=== PATIENT | female | born 1935 | race African-American/Black ===

== ENCOUNTER 2018-09-05 15:18 | Inpatient (IN) | payer OTHER, MEDICAID ==
[~2018-09-05] VITALS: Ht 162.6 cm; Wt 98.9 kg
[2018-09-05 15:27] VITALS: BP_SYST 147
--- NOTE | 2018-09-05 15:40 | NUR ---
Patient to ER bed 4 to gown for evaluation. Side rails up. Report given to Liliana PANDYA.
--- NOTE | 2018-09-05 15:42 | NUR ---
Pt brought by self,A&Ox4, pt presents to ER with SOB and swelling on lower extremities, denies pain , skin pink and warm, cap refill <3, VSS, respirations even and unlabored, cap refill <3, pt follows commands.
--- NOTE | 2018-09-05 16:00 | NUR ---
Dr John at bedside examining patient
[2018-09-05 16:15] LABS: BILIRUBIN,URINE NEGATIVE (NEGATIVE); BLOOD, URINE NEGATIVE (NEGATIVE); CLARITY/URINE CLEAR (CLEAR); COLOR,URINE YELLOW (YELLOW); GLUCOSE,URINE NEGATIVE (NEGATIVE); KETONES,URINE NEGATIVE (NEGATIVE); LEUKOCYTE ESTERASE ,URINE NEGATIVE (NEGATIVE); NITRITE, URINE NEGATIVE (NEGATIVE); PH,URINE 6.5 (5.0-8.0); PROTEIN URINE 2+ (NEGATIVE); UROBILINOGEN,URINE 0.2 (0.2-1.0)
[2018-09-05 16:26] LABS: ANION GAP 3 (5-15); CALCIUM 9.2 mg/dL (8.4-11.0); CHLORIDE 104 mmol/L (98-107); CREATININE 1.34 mg/dL (0.55-1.30); GLUCOSE 132 mg/dL (70-99); POTASSIUM 4.1 mmol/L (3.5-5.1); SODIUM SERUM 139 mmol/L (136-145); UREA NITROGEN, BLOOD 33 mg/dL (8-21)
[2018-09-05 16:30] LABS: ALANINE AMINOTRANSFERASE 14 U/L (12-78); ALBUMIN 2.8 g/dL (3.4-4.8); ASPARTATE AMINOTRANSFERASE 16 U/L (10-37); TOTAL BILIRUBIN 0.2 mg/dL (0.0-1.0)
[2018-09-05 16:31] LABS: BASOPHILS # (AUTO) 0.2 K/uL (0.0-0.2); BASOPHILS % (AUTO) 1.6 % (0.0-2.0); EOSINOPHILS # (AUTO) 0.4 K/uL (0.0-0.4); EOSINOPHILS % (AUTO) 3.6 % (0.0-4.0); HEMATOCRIT 31.6 % (36-48); HEMOGLOBIN 9.5 g/dL (12.0-16.0); LYMPHOCYTES # (AUTO) 1.3 K/uL (1.0-5.5); LYMPHOCYTES % (AUTO) 12.6 % (20.5-51.5); MEAN CORPUSCULAR HEMOGLOBIN 24 pg (27-31); MEAN CORPUSCULAR HGB CONC 30 % (32-36); MEAN CORPUSCULAR VOLUME 78 fL (79.0-98.0); MONOCYTES # (AUTO) 0.9 K/uL (0.0-1.0); MONOCYTES % (AUTO) 8.6 % (1.7-9.3); NEUTROPHILS # (AUTO) 7.7 K/uL (1.8-7.7); NEUTROPHILS % (AUTO) 73.6 % (40.0-70.0); PLATELET COUNT (AUTO) 294 K/uL (130-430); RED BLOOD CELL COUNT(AUTO) 4.03 MIL/uL (4.2-6.2); RED CELL DISTRIBUTION WIDTH 17.6 % (9.0-15.0); WHITE BLOOD COUNT (AUTO) 10.5 K/uL (4.8-10.8)
[2018-09-05 16:32] LABS: INR 0.9 (0.8-1.2); PROTHROMBIN TIME 9.5 SECS (9.5-12.5)
[2018-09-05 16:34] LABS: BACTERIA,URINE FEW /HPF (None Seen); RBC,URINE 0-3 /HPF (0-3); WBC,URINE 0-3 /HPF (0-3)
[2018-09-05 16:35] LABS: MUCUS,URINE None Seen /LPF (None Seen)
[2018-09-05] MEDS ORDERED: FUROSEMIDE 40 MG/4 ML VIAL IVP ONE (17:00)
[2018-09-05] MEDS ORDERED: FLUT16SP16 NS (18:03)
[2018-09-05] MEDS ORDERED: HYDR12.585 PO (18:03)
[2018-09-05] MEDS ORDERED: HYDR2TAB4 PO (18:03)
[2018-09-05] MEDS ORDERED: FURO-149 PO (18:03)
[2018-09-05] MEDS ORDERED: LINA5TAB2 PO (18:03)
[2018-09-05] MEDS ORDERED: OMEG-143 PO (18:03)
[2018-09-05] MEDS ORDERED: NOR10 PO (18:03)
[2018-09-05] MEDS ORDERED: METO50TA7 PO (18:03)
[2018-09-05] MEDS ORDERED: LISI10TA5 PO (18:03)
[2018-09-05] MEDS ORDERED: NEBI5TAB3 PO (18:03)
--- NOTE | 2018-09-05 18:03 | NUR ---
Medication reconciliation completed based upon hand written list of medications provided by patient.
--- NOTE | 2018-09-05 18:06 | NUR ---
Patient will be admitted to care of Dr. Cartagena. Admitted to Telemetry unit. Will go to room 106 B. Belongings list completed. Summary report printed. Report will be given at bedside.
--- NOTE | 2018-09-05 18:06 | NUR ---
Transfer to Telemetry via ACLS protocol. Licensed nurse present. IV present no signs or symptoms of infiltration.
--- NOTE | 2018-09-05 18:10 | NUR ---
ADMIT NOTE Received pt from ER to the floor with a diagnosis of chf exacerbation. Admission process initiated. patient oriented to pain management, safety and call light-teach back done.
--- NOTE | 2018-09-05 18:30 | NUR ---
OPENING NOTES, RECEIVED PT FROM [place] . PT IS AAOX4, DENIES PAIN. NO SOB, NO RESP DISTRESS, PT ON O2 2L PER NC WITH SAT OF 99-100%, FAMILY AT BEDSIDE. PT EDUCATED ON THE USE OF CALL LIGHT AND TV AND BED CONTROLS. ENCOURAGED TO CALL FOR ASSIST AND PAIN MEDS AND ANY CONCERNS. PROVIDED BS COMMODE. WILL ENDORSE TO NIGHT RN.
[2018-09-05 18:35] VITALS: BP_SYST 146
--- NOTE | 2018-09-05 19:30 | NUR ---
Initial Notes Received handoff report from offgoing nurse at the bedside. Patient is awake and alert, resting comfortably in bed. No SOB, no acute distress, no complaints of pain or facial grimacing at this time. IV site intact, dressing clean and dry, saline locked. Bed is locked, in the lowest position, 2x side rails up, bed alarm is on. Call light is within reach. Encouraged patient to call for assistance. Will continue with plan of care.
--- NOTE | 2018-09-05 19:45 | NUR ---
CONSULTATION PAGED/CALLED Reason for Consultation: CHF Person Who was Notified: REJI Consulting Physician: ANT/ DOCTOR HUNTLEY IS NUCLEAR MEDICAL TECHNOLOGIST Nurse Anesthesia Program Director Specialty: CARDIO Ordering Physician: BRADLEY
--- NOTE | 2018-09-05 19:47 | NUR ---
CONSULTATION PAGED/CALLED Reason for Consultation: ELEVATED BUN AND CRETENENIE Person Who was Notified: SHU Consulting Physician: BRUNA Watch Mechanic Specialty: NEPHRO Ordering Physician: BRADLEY
[2018-09-05 20:00] VITALS: BP_SYST 142
--- NOTE | 2018-09-05 20:45 | NUR ---
Patient able to get to bedside commode independently without assistance. Had a BM. Now resting comfortably in bed. Call light within reach. Encouraged patient to call.
--- NOTE | 2018-09-05 21:56 | NUR ---
Patient resting comfortably in bed, eyes closed. Breathing even and unlabored with visible chest rise and fall noted. Call light within reach.
--- NOTE | 2018-09-06 | NUR ---
Patient resting in bed, eyes closed, easily aroused by touch. No SOB, no acute distress, no complaints of pain at this time. Provided patient with more water per patient request. Call light is within reach. Encouraged patient to call.
[2018-09-06 01:15] VITALS: BP_SYST 143
--- NOTE | 2018-09-06 02:16 | NUR ---
Patient resting comfortably in bed, eyes closed. Breathing even and unlabored with visible chest rise and fall noted. No SOB, no acute distress, no signs of pain or facial grimacing noted. Bed is locked, in the lowest position, 2x side rails up, bed alarm is on. Call light is within reach.
--- NOTE | 2018-09-06 03:59 | NUR ---
Patient assisted to the BSC and back to bed. Now resting comfortably in bed. 2L NC and tolerating well. Call light within reach. Encouraged to call.
--- NOTE | 2018-09-06 06:30 | NUR ---
CLOSING NOTES PATIENT RESTING COMFORTABLY IN BED, EYES CLOSED. BREATHING EVEN AND UNLABORED WITH VISIBLE CHEST RISE AND FALL NOTED. IV SITE IS INTACT, DRESSING CLEAN AND DRY, SALINE LOCKED. BED IS LOCKED, IN THE LOWEST POSITION, 2X SIDE RAILS UP, BED ALARM IS ON. CALL LIGHT IS WITHIN REACH. FALL AND SAFETY PRECAUTIONS MAINTAINED. ALL NEEDS HAVE BEEN MET DURING THIS SHIFT. WILL ENDORSE CARE TO ONCOMING DAYSHIFT NURSE.
--- NOTE | 2018-09-06 08:21 | NUR ---
OPENING NOTES, RECEIVED PT IN BED, PT IS AAOX4, DENIES PAIN. NO SOB, NO RESP DISTRESS, PT HAS COUGH BUT DOES NOT COUGH UP PHLEGM. PT ON O2 2L PER NC WITH SAT OF 95-88% SAFETY. DISCUSSED PLAN OF CARE FOR PT. PRECAUTION IN PLACE. CALL LIGHT IN REACH. BED IN LOW POSITION. ENCOURAGED TO CALL FOR ASSIST AND PAIN MEDS AND ANY CONCERNS. PROVIDED BS COMMODE. WILL ENDORSE TO NIGHT RN.
[2018-09-06 08:23] VITALS: BP_SYST 146
[2018-09-06] MEDS: ALBUTEROL SULFATE 0.083% 2.5 MG/3 ML VIAL.NEB INH SCH ×4 (11:00→23:34)
[2018-09-06] MEDS: cefTRIAXone 1 GM IVPB PREMIX 50 ML IV SCH (11:33)
[2018-09-06 12:49] VITALS: BP_SYST 140
[2018-09-06 13:59] VITALS: BP_SYST 146
--- NOTE | 2018-09-06 14:00 | NUR ---
PT C/O NAUSEA, PT VITALS ARE 127/59. HR 72, RR 16, O2 ON RA IS 79%, PT PLACED BACK ON O2 2LI PER NC. SATURATED WENT UP TO 94%. WILL CALL MD FOR NAUSEA MEDICATIONS.
--- NOTE | 2018-09-06 15:12 | NUR ---
REPAGED DR HUERTA THRU UNIT SEC. PACE FOR ANTI NAUSEA MEDICATIONS.
[2018-09-06 15:36] VITALS: BP_SYST 136
--- NOTE | 2018-09-06 19:30 | NUR ---
Initial Notes Handoff report received from offgoing nurse at the bedside. Patient is awake and alert, resting comfortably in bed. No SOB, no acute distress, no complaints of pain at this time. Bed is locked, in the lowest position, 2x side rails up, bed alarm is on. Call light is within reach. Encouraged patient to call for assistance. Will continue with plan of care.
--- NOTE | 2018-09-06 19:45 | NUR ---
CLOSING NOTES, PT HAS BEEN STABLE, NO FEVER, PT HAD AN EPISODE OF DESATURATION TO 79% ON ROOM AIR, PT PLACED BACK ON ON 2L PER NC AND 02 SAT WENT UP AGIN TO 94-95%. ENDORSED TO NIGHT RN.
[2018-09-06 20:45] VITALS: BP_SYST 168
[2018-09-06] MEDS: PANTOPRAZOLE SODIUM 40 MG TAB PO SCH (20:54)
[2018-09-06] MEDS: FUROSEMIDE 20 MG TABLET PO SCH (20:55)
[2018-09-06] MEDS: HYDROcodone/ACETAMIN 10-325 MG TAB PO PRN (20:58)
--- NOTE | 2018-09-06 20:58 | NUR ---
Patient had complaints of a headache 09/04. Provided patient with Grapeview PRN per MD order, see eMAR for details.
--- NOTE | 2018-09-06 21:01 | NUR ---
paged paged for Dr Cartagena, dialed . s/w Live.
--- NOTE | 2018-09-06 21:10 | NUR ---
Spoke with Dr Cartagena. Patient had complaints of nausea previously in the day. Dr Cartagena ordered Zofran 4mg IVP Q6H PRN for nausea. Also, patient's BP elevated 168/72. Lasix recently given at 2054; however, I, Kristal Junior, had not had the change to reassess BP. Dr Cartagena ordered Vasotec 1.25 mg IVP Q6HP for SBP > 150. Orders noted.
[2018-09-06] MEDS ORDERED: ONDANSETRON HCL 4 MG/2 ML VIAL IVP PRN (23:30)
[2018-09-06] MEDS: ENALAPRILAT DIHYDRATE 1.25 MG/ML VIAL IVP PRN (23:37)
--- NOTE | 2018-09-06 23:44 | NUR ---
Patient assisted to bsc to void. Unsteady gait at this time. Patient is experiencing symptoms of shakiness in her extremities. BP taken, BP is 168/71. Provided patient with Vasotec IVP per MD order, see eMAR for details. Will continue to monitor.
--- NOTE | 2018-09-06 23:49 | NUR ---
Initial Notes Handoff report received from offgoing nurse at the bedside. Patient is awake and alert, resting comfortably in bed. No SOB, no acute distress, no complaints of pain at this time. Bed is locked, in the lowest position, 2x side rails up, bed alarm is on. Call light is within reach. Encouraged patient to call for assistance. Will continue with plan of care. Addendum: 09/06/18 at 4868 by Kristal Junior RN ERROR* WRONG TIME
[2018-09-07 01:48] VITALS: BP_SYST 112; BP_SYST 168
--- NOTE | 2018-09-07 02:24 | NUR ---
Patient resting comfortably in bed, eyes closed. Breathing even and unlabored with visible chest rise and fall noted. no sob, no acute distress, no signs of pain or facial grimacing noted. Bed is locked, in the lowest position, 2x side rails up, bed alarm is on. call light is within reach.
[2018-09-07] MEDS: ALBUTEROL SULFATE 0.083% 2.5 MG/3 ML VIAL.NEB INH SCH ×6 (03:00→23:06)
--- NOTE | 2018-09-07 05:15 | NUR ---
Patient requested to use the bathroom, but is too unsteady and weak to ambulate. Patient assisted to use bedpan. perineal care provided after voiding. Now resting comfortably in bed, clean and dry.
[2018-09-07 06:33] LABS: BASOPHILS % (AUTO) 0.4 % (0.0-2.0); EOSINOPHILS # (AUTO) 0.2 K/uL (0.0-0.4); EOSINOPHILS % (AUTO) 2.5 % (0.0-4.0); HEMATOCRIT 29.3 % (36-48); HEMOGLOBIN 8.8 g/dL (12.0-16.0); LYMPHOCYTES # (AUTO) 1.1 K/uL (1.0-5.5); LYMPHOCYTES % (AUTO) 14.1 % (20.5-51.5); MEAN CORPUSCULAR HEMOGLOBIN 24 pg (27-31); MEAN CORPUSCULAR HGB CONC 30 % (32-36); MEAN CORPUSCULAR VOLUME 80 fL (79.0-98.0); MONOCYTES # (AUTO) 0.8 K/uL (0.0-1.0); MONOCYTES % (AUTO) 10.4 % (1.7-9.3); NEUTROPHILS # (AUTO) 5.8 K/uL (1.8-7.7); NEUTROPHILS % (AUTO) 72.6 % (40.0-70.0); PLATELET COUNT (AUTO) 245 K/uL (130-430); RED BLOOD CELL COUNT(AUTO) 3.66 MIL/uL (4.2-6.2); RED CELL DISTRIBUTION WIDTH 17.2 % (9.0-15.0)
--- NOTE | 2018-09-07 06:39 | NUR ---
CLOSING NOTES Received handoff report from offgoing nurse at the bedside. Patient is awake and alert, resting comfortably in bed. No SOB, no acute distress, no signs of pain or facial grimacing noted. Bed is locked, in the lowest position, 2x side rails up, bed alarm is on. Call light is within reach. Fall and safety precautions maintained. All needs have been met during this shift. Will endorse care to oncoming dayshift nurse.
[2018-09-07 06:58] LABS: ALANINE AMINOTRANSFERASE 13 U/L (12-78); ALBUMIN 2.5 g/dL (3.4-4.8); ASPARTATE AMINOTRANSFERASE 11 U/L (10-37); CREATININE 1.32 mg/dL (0.55-1.30); GLUCOSE 107 mg/dL (70-99); POTASSIUM 3.7 mmol/L (3.5-5.1); SODIUM SERUM 143 mmol/L (136-145); THYROID STIMULATING HORMONE 0.49 uIu/mL (0.36-3.74); TOTAL BILIRUBIN 0.1 mg/dL (0.0-1.0); UREA NITROGEN, BLOOD 27 mg/dL (8-21)
[2018-09-07 07:07] LABS: CALCIUM 8.6 mg/dL (8.4-11.0)
[2018-09-07 07:14] LABS: CHLORIDE 101 mmol/L (98-107)
--- NOTE | 2018-09-07 07:15 | NUR ---
Opening Note: Patient in bed resting. Patient denies pain and discomfort. Breathing is even and unlabored, SOB upon exertion/talking. On 2L nasal cannula. IV patent and intact and saline locked. Safety precautions in place; bed in lowest position, wheels locked, side rails x3, bed alarm activated and call light within reach. No needs at this time. Will continue to monitor.
[2018-09-07 07:21] LABS: ANION GAP < 3 (5-15)
[2018-09-07 08:08] VITALS: BP_SYST 162
[2018-09-07] MEDS: LISINOPRIL 10 MG TABLET (PRINIVIL) PO SCH (08:19)
[2018-09-07] MEDS: PANTOPRAZOLE SODIUM 40 MG TAB PO SCH ×2 (08:19→22:35)
[2018-09-07] MEDS: METOPROLOL TARTRATE 25 MG TABLET PO SCH ×2 (08:19→22:34)
[2018-09-07] MEDS: FUROSEMIDE 20 MG TABLET PO SCH ×2 (08:19→22:35)
[2018-09-07] MEDS: FLUTICASONE PROPIONATE 50 mCg/SPRAY 16 GM NS SCH ×2 (08:20→22:37)
--- NOTE | 2018-09-07 10:00 | NUR ---
Rounds: Patient in bed resting, no distress noted.
[2018-09-07] MEDS: cefTRIAXone 1 GM IVPB PREMIX 50 ML IV SCH (11:06)
[2018-09-07] MEDS: HYDROcodone/ACETAMIN 10-325 MG TAB PO PRN ×2 (11:12→22:35)
[2018-09-07 11:27] VITALS: BP_SYST 141
--- NOTE | 2018-09-07 12:14 | NUR ---
Rounds: Patient assisted to BSC. Patient no longer complains of pain. Morning medications tolerated well. No SOB or respiratory distress noted at this time. Rocephin IVPB infusion compete, no signs of infiltration noted. Safety precautions in place; bed in lowest position, wheels locked, side rails x3, bed alarm activated and call light within reach. No needs at this time. Will continue to monitor.
--- NOTE | 2018-09-07 14:20 | NUR ---
Rounds: Patient in bed resting, watching TV. Patient states feeling better. Will continue to monitor.
[2018-09-07 15:31] VITALS: BP_SYST 138
--- NOTE | 2018-09-07 16:07 | NUR ---
Rounds: Patient in bed resting. Patient denies pain and discomfort. No SOB or respiratory distress noted at this time. Safety precautions in place; bed in lowest position, wheels locked, side rails x3, bed alarm activated and call light within reach. No needs at this time. Will continue to monitor.
--- NOTE | 2018-09-07 18:35 | NUR ---
Closing Note: Patient in bed resting. Patient denies pain and discomfort. Breathing is even and unlabored, with no distress noted. On 2L nasal cannula. IV patent and intact and saline locked. Safety precautions in place; bed in lowest position, wheels locked, side rails x3, bed alarm activated and call light within reach. All needs met. Will endorse plan of care to NOC, nurse.
[2018-09-07 20:19] VITALS: BP_SYST 137
--- NOTE | 2018-09-07 22:25 | NUR ---
ASSIST PATIENT OUT OF BED TO BSC , AMBULATES with assist FALL MEASURES IMPLEMENTED & EFFECTIVE .
[2018-09-08] VITALS (7 sets, daily range): BP systolic 144–170
--- NOTE | 2018-09-08 | NUR ---
NORCO TABLET 10 /325 MG PO GIVEN FOR GENERAL PAIN & HELPFUL , patient Resting .
[2018-09-08] MEDS: ALBUTEROL SULFATE 0.083% 2.5 MG/3 ML VIAL.NEB INH SCH ×6 (03:20→23:28)
--- NOTE | 2018-09-08 04:15 | NUR ---
HISTORY OF CHF GENERAL BODY WEIGHT 215.6 LBS BUILT IN BED SCALE .
--- NOTE | 2018-09-08 04:45 | NUR ---
HOURLY ROUNDING PATIENT RESTING HOB ELEVATED VERBALLY RESPONSIVE NEBULIZER BREATHING TX GIVEN CHEST MOVEMENT SYMMETRICAL UNLABORED .
--- NOTE | 2018-09-08 04:50 | NUR ---
FALL MEASURES INPLACE patient Resting call garg with patient assist encourage position change on schedule tolerate .
[2018-09-08 06:33] LABS: BASOPHILS % (AUTO) 0.3 % (0.0-2.0); EOSINOPHILS # (AUTO) 0.4 K/uL (0.0-0.4); EOSINOPHILS % (AUTO) 4.3 % (0.0-4.0); HEMATOCRIT 27.2 % (36-48); HEMOGLOBIN 8.3 g/dL (12.0-16.0); LYMPHOCYTES # (AUTO) 1.3 K/uL (1.0-5.5); LYMPHOCYTES % (AUTO) 14.6 % (20.5-51.5); MEAN CORPUSCULAR HEMOGLOBIN 24 pg (27-31); MEAN CORPUSCULAR HGB CONC 31 % (32-36); MEAN CORPUSCULAR VOLUME 79 fL (79.0-98.0); MONOCYTES # (AUTO) 0.8 K/uL (0.0-1.0); MONOCYTES % (AUTO) 9.5 % (1.7-9.3); NEUTROPHILS # (AUTO) 6.4 K/uL (1.8-7.7); NEUTROPHILS % (AUTO) 71.3 % (40.0-70.0); PLATELET COUNT (AUTO) 236 K/uL (130-430); RED BLOOD CELL COUNT(AUTO) 3.44 MIL/uL (4.2-6.2); RED CELL DISTRIBUTION WIDTH 17.5 % (9.0-15.0)
[2018-09-08 07:05] LABS: ALANINE AMINOTRANSFERASE 13 U/L (12-78); ALBUMIN 2.5 g/dL (3.4-4.8); ANION GAP 4 (5-15); ASPARTATE AMINOTRANSFERASE 10 U/L (10-37); CHLORIDE 100 mmol/L (98-107); CREATININE 1.06 mg/dL (0.55-1.30); GLUCOSE 98 mg/dL (70-99); POTASSIUM 3.6 mmol/L (3.5-5.1); SODIUM SERUM 140 mmol/L (136-145); TOTAL BILIRUBIN 0.2 mg/dL (0.0-1.0); UREA NITROGEN, BLOOD 23 mg/dL (8-21)
--- NOTE | 2018-09-08 07:15 | NUR ---
Opening Note: Patient in bed resting. Patient denies pain and discomfort. Breathing is even and unlabored On 2L nasal cannula, no distress noted. IV patent and intact and saline locked. Safety precautions in place; bed in lowest position, wheels locked, side rails x3, bed alarm activated and call light within reach. No needs at this time. Will continue to monitor.
[2018-09-08] MEDS: PANTOPRAZOLE SODIUM 40 MG TAB PO SCH ×2 (08:29→20:28)
[2018-09-08] MEDS: HYDROcodone/ACETAMIN 10-325 MG TAB PO PRN (08:29)
[2018-09-08] MEDS: FUROSEMIDE 20 MG TABLET PO SCH ×2 (08:29→20:28)
[2018-09-08] MEDS: METOPROLOL TARTRATE 25 MG TABLET PO SCH ×2 (08:30→20:28)
[2018-09-08] MEDS: LISINOPRIL 10 MG TABLET (PRINIVIL) PO SCH (08:30)
[2018-09-08] MEDS: FLUTICASONE PROPIONATE 50 mCg/SPRAY 16 GM NS SCH ×2 (08:31→20:27)
--- NOTE | 2018-09-08 10:12 | NUR ---
Nutrition Update Anup Scale 17 noted. Pt admitted for CHF. Diet: 2 gm Na BMI: 37 kg/m2 RD to follow per nutrition care standards.
[2018-09-08] MEDS: cefTRIAXone 1 GM IVPB PREMIX 50 ML IV SCH (10:34)
--- NOTE | 2018-09-08 10:34 | NUR ---
Rounds: Patient in bed resting, no distress noted. Rocephin IVPB started.
--- NOTE | 2018-09-08 12:10 | NUR ---
Rounds: Patient sitting in chair. Patient denies pain and discomfort. Morning medications tolerated well. No SOB or respiratory distress noted at this time. Safety precautions in place; bed in lowest position, wheels locked, side rails x3, bed alarm activated and call light within reach. No needs at this time. Will continue to monitor.
[2018-09-08] MEDS: ENALAPRILAT DIHYDRATE 1.25 MG/ML VIAL IVP PRN (13:15)
--- NOTE | 2018-09-08 13:15 | NUR ---
Elevated BP: Patient's BP was 157/72, PRN Vasotec administered per MD orders, see eMAR. Will reassess.
[2018-09-08] MEDS ORDERED: PROMETHAZINE 6.25 MG/ CODEINE 10 MG/ 5 ML PO PRN (16:00)
[2018-09-08] MEDS ORDERED: AZITHROMYCIN 250 MG in NS 250 ML IV SCH (16:00)
--- NOTE | 2018-09-08 19:15 | NUR ---
Opening Note Report received at bedside. Patient in bed resting in bed. AAOx4 and able to verbalize needs. No pain stated by the patient. bed low and locked. Bed alarm is active. IV to right wrist 22g s/l flushed with no s/s of infiltration. Oriented the patient to the room and use of the call light. Informed patient and understanding verbalized to use call light when getting up to use the bathroom. Call light placed within reach of the right hand. Will monitor on rounds for any change in condition.
--- NOTE | 2018-09-08 22:49 | NUR ---
Patient resting in bed. No pain or respiratory distress. No needs at this time. Call light within reach.
[2018-09-09 00:37] VITALS: BP_SYST 144
--- NOTE | 2018-09-09 03:22 | NUR ---
Patient up to use the bedside commode. Bed alarm refused. Education provided wit verbal understamf. No bowel movement.
[2018-09-09] MEDS: ALBUTEROL SULFATE 0.083% 2.5 MG/3 ML VIAL.NEB INH SCH ×6 (04:04→23:43)
[2018-09-09 06:20] LABS: BASOPHILS % (AUTO) 0.4 % (0.0-2.0); EOSINOPHILS # (AUTO) 0.2 K/uL (0.0-0.4); HEMOGLOBIN 8.9 g/dL (12.0-16.0); LYMPHOCYTES % (AUTO) 12.3 % (20.5-51.5); MEAN CORPUSCULAR HEMOGLOBIN 24 pg (27-31); MEAN CORPUSCULAR HGB CONC 31 % (32-36); MEAN CORPUSCULAR VOLUME 78 fL (79.0-98.0); MONOCYTES # (AUTO) 0.8 K/uL (0.0-1.0); MONOCYTES % (AUTO) 10.1 % (1.7-9.3); NEUTROPHILS # (AUTO) 6.1 K/uL (1.8-7.7); NEUTROPHILS % (AUTO) 74.2 % (40.0-70.0); PLATELET COUNT (AUTO) 216 K/uL (130-430); RED BLOOD CELL COUNT(AUTO) 3.73 MIL/uL (4.2-6.2); RED CELL DISTRIBUTION WIDTH 17.3 % (9.0-15.0); WHITE BLOOD COUNT (AUTO) 8.2 K/uL (4.8-10.8)
[2018-09-09 06:28] LABS: ALANINE AMINOTRANSFERASE 13 U/L (12-78); ALBUMIN 2.4 g/dL (3.4-4.8); ASPARTATE AMINOTRANSFERASE 12 U/L (10-37); CALCIUM 9.3 mg/dL (8.4-11.0); CHLORIDE 98 mmol/L (98-107); CREATININE 0.95 mg/dL (0.55-1.30); GLUCOSE 120 mg/dL (70-99); POTASSIUM 3.5 mmol/L (3.5-5.1); SODIUM SERUM 139 mmol/L (136-145); TOTAL BILIRUBIN 0.3 mg/dL (0.0-1.0); UREA NITROGEN, BLOOD 15 mg/dL (8-21)
[2018-09-09 06:30] LABS: ANION GAP < 3 (5-15)
--- NOTE | 2018-09-09 06:57 | NUR ---
Closing notes Patient in bed resting. No stated pain or sob. IV site clean and intact. All needs have been met and will endorse care to oncoming shift. Safety precautions in place.
[2018-09-09 07:45] VITALS: BP_SYST 157
[2018-09-09 08:00] VITALS: BP_SYST 157
--- NOTE | 2018-09-09 08:00 | NUR ---
Note Pt sitting up in bed eating her breakfast. Pt has her O2 on at 2L/nc. Tele unit attached and intact. Pt finishing her breathing treatments at this time. No SOB/resp distress or pain/discomfort noted at this time. IV in right wrist intact and patent at this time. BSC next to pt for use. No needs noted. Pt's appetite poor at this time for breakfast. Call light within reach.
[2018-09-09] MEDS: HYDROcodone/ACETAMIN 10-325 MG TAB PO PRN ×2 (08:58→19:34)
[2018-09-09] MEDS: PANTOPRAZOLE SODIUM 40 MG TAB PO SCH ×2 (08:59→20:26)
[2018-09-09] MEDS: LISINOPRIL 10 MG TABLET (PRINIVIL) PO SCH (08:59)
[2018-09-09] MEDS: METOPROLOL TARTRATE 25 MG TABLET PO SCH ×2 (09:00→20:26)
[2018-09-09] MEDS: FUROSEMIDE 20 MG TABLET PO SCH ×2 (09:00→20:27)
[2018-09-09] MEDS: FLUTICASONE PROPIONATE 50 mCg/SPRAY 16 GM NS SCH ×2 (09:02→20:26)
--- NOTE | 2018-09-09 10:25 | NUR ---
Nutrition Assessment (short note d/t lack of time) A- Pt seen resting in bed, head elevated on the bed. Pt reported of good appetite, +nausea d/t breathing treatment. Pt wears upper dentures, but has been tolerating food texture since admission and declined any changes in diet texture. Pt reported food preferences, RD will note in [employer]. Pt denied any wt changes/food allergy. Ht: 5'4 Wt: 214 lb, 97 kg %IBW: 178 IBW: 120 lb, 55 kg Adj IBW: 144 lb, 65 kg ESTIMATED NUTRITIONAL REQUIREMENTS CALORIES/DAY: 4641-5875 kcal/day (25-30 kcal/kg Adj IBW for maintenance) PROTEIN/DAY: 78-85 gm/day (1.2-1.3 gm/kg Adj IBW for Renal Dz and Geriatric maintenance) FLUID/DAY: per MD (Renal Dz) D: Altered nutrition related labs r/t endocrine dysfunction AEB elevated BG lab values and Hx of DM. I: Recommend: CCHO Cardiac diet w/ Glucerna BID. ONS will provide additional 440 kcal and 20 gm protein daily. Discontinue ONS once PO intake improves and meets 75% of estimated needs. M: Monitor appetite and PO intake w/ goal of pt meeting at least 75% of estimated needs, labs trending WNL, normal GI function, skin integrity/wt maintenance. E: RD to F/U within 2-3 days KRISTOPHER OBREGON
--- NOTE | 2018-09-09 10:30 | NUR ---
Note Pt was assisted to BSC, pt states she feels very weak today. No needs noted at this time. Call light within reach. Pt was seen and assessed by Dr Ojeda at bedside at this time as well. Pt next to nurses's station for close observation for needs and care.
[2018-09-09] MEDS: cefTRIAXone 1 GM IVPB PREMIX 50 ML IV SCH (11:01)
[2018-09-09 12:00] VITALS: BP_SYST 132
--- NOTE | 2018-09-09 12:03 | NUR ---
PHYSICAL THERAPY CO-SIGN The Physical Therapy Progress Notes documented by Information Officer have been reviewed. Reviewed/Co-Signed by: Mary Sim PT Documentation Done by:SHAISTA PERAZA AUTO ENGINE MECHANIC Addendum: 09/09/18 at 1203 by Mary Sim PT Amended: Links added. Addendum: 09/09/18 at 1204 by Mary Sim PT Hgb=8.9
--- NOTE | 2018-09-09 12:25 | NUR ---
Note Pt sitting up in bed eating her lunch. Pt has her O2 on at 2L/nc. Pt just finished her resp breathing treatment at this time. No needs noted at this time. Pt's tele unit was dc'd at 1130am and returned to laboratory monitor. Call light within reach.
--- NOTE | 2018-09-09 15:14 | NUR ---
DC Planning: LVM at [facility] CHELO NICHOLSON AT PH [phone] [phone] requesting a contracted snf list. Per MUMTAZ Busby, the pt still c/o abd pain, unable to walk with PT today.
[2018-09-09 16:00] VITALS: BP_SYST 149
--- NOTE | 2018-09-09 16:00 | NUR ---
Note Pt resting in bed with daughter at bedside - the last 4 hours. No needs noted. No SOB/resp distress or pain/discomfort noted at this time.
--- NOTE | 2018-09-09 18:00 | NUR ---
Note Pt was assisted to BSC and then back to bed. Pt sitting up in bed eating her dinner. No SOB/resp distress or pain/discomfort noted at this time. IV in right hand intact and patent. Pt was checked on q1' and PRN all shift for needs and care. No needs noted at this time. Call light within reach. Pt has O2 on at 2L/nc all shift - had breathing treatments as scheduled all shift as well. VSS.
--- NOTE | 2018-09-09 19:35 | NUR ---
ROUNDS PATIENT RESTING COMFORTABLY IN BED, NOT IN DISTRESS, VITALS STABLE. DENIES ANY PAIN AND DISCOMFORT AT THIS TIME. ASSESSMENT DONE AND DOCUMENTED. SEE FLOWSHEET. NEEDS ATTENDED TO. SAFETY AND FALL PRECAUTION MEASURES IN PLACED. BED IN LOW AND LOCKED POSITION. BED ALARM ON. CALL LIGHT PLACED WITHIN REACH.
[2018-09-09 20:00] VITALS: BP_SYST 148
--- NOTE | 2018-09-09 21:14 | NUR ---
MEDICATION DUE MEDICATIONS GIVEN SCHEDULED, TOLERATED WELL. WILL CONTINUE TO MONITOR.
--- NOTE | 2018-09-10 00:13 | NUR ---
PATIENT RESTING: Patient resting quietly. No acute distress noted. Vital signs within normal range.
[2018-09-10 00:18] VITALS: BP_SYST 149
--- NOTE | 2018-09-10 02:15 | NUR ---
ROUNDS PATIENT ASLEEP, NO SOB NOR PAIN AND DISCOMFORT NOTED, WILL CONTINUE TO MONITOR.
[2018-09-10] MEDS: ALBUTEROL SULFATE 0.083% 2.5 MG/3 ML VIAL.NEB INH SCH ×6 (03:00→23:23)
--- NOTE | 2018-09-10 04:16 | NUR ---
ROUNDS PATIENT ASLEEP, RESPIRATIONS EVEN AND UNLABORED, NO PAIN AND DISCOMFORT NOTED. WILL CONTINUE TO MONITOR.
--- NOTE | 2018-09-10 06:07 | NUR ---
CLOSING NOTES PATIENT AWAKE, WATCHING TV, VITALS STABLE, NO COMPLAINTS AT THIS TIME. ALL NEEDS ATTENDED TO. SAFETY AND FALL PRECAUTION MEASURES MAINTAINED. CALL LIGHT PLACED WITHIN REACH.
[2018-09-10 07:05] LABS: BASOPHILS % (AUTO) 0.4 % (0.0-2.0); EOSINOPHILS # (AUTO) 0.2 K/uL (0.0-0.4); EOSINOPHILS % (AUTO) 2.8 % (0.0-4.0); HEMATOCRIT 29.4 % (36-48); LYMPHOCYTES # (AUTO) 1.3 K/uL (1.0-5.5); MEAN CORPUSCULAR HEMOGLOBIN 24 pg (27-31); MEAN CORPUSCULAR HGB CONC 31 % (32-36); MEAN CORPUSCULAR VOLUME 78 fL (79.0-98.0); MONOCYTES # (AUTO) 0.7 K/uL (0.0-1.0); MONOCYTES % (AUTO) 9.2 % (1.7-9.3); NEUTROPHILS # (AUTO) 5.6 K/uL (1.8-7.7); NEUTROPHILS % (AUTO) 70.6 % (40.0-70.0); PLATELET COUNT (AUTO) 240 K/uL (130-430); RED BLOOD CELL COUNT(AUTO) 3.79 MIL/uL (4.2-6.2); RED CELL DISTRIBUTION WIDTH 17.8 % (9.0-15.0); WHITE BLOOD COUNT (AUTO) 7.9 K/uL (4.8-10.8)
[2018-09-10 07:23] LABS: ALANINE AMINOTRANSFERASE 12 U/L (12-78); ALBUMIN 2.3 g/dL (3.4-4.8); ASPARTATE AMINOTRANSFERASE 12 U/L (10-37); CALCIUM 9.3 mg/dL (8.4-11.0); CHLORIDE 98 mmol/L (98-107); CREATININE 1.11 mg/dL (0.55-1.30); GLUCOSE 99 mg/dL (70-99); POTASSIUM 3.7 mmol/L (3.5-5.1); SODIUM SERUM 137 mmol/L (136-145); TOTAL BILIRUBIN 0.2 mg/dL (0.0-1.0); UREA NITROGEN, BLOOD 20 mg/dL (8-21)
[2018-09-10 07:31] LABS: ANION GAP < 3 (5-15)
[2018-09-10 08:00] VITALS: BP_SYST 145
--- NOTE | 2018-09-10 08:00 | NUR ---
initial notes rec patient awake with hob slightly elevated. ivl on the r wrist in place. no infiltration noted. resp easy and unlabored. no sob noted. bed to the lowest position and side rails up and locked. call light withn reached and calls for help.
[2018-09-10] MEDS: PANTOPRAZOLE SODIUM 40 MG TAB PO SCH ×2 (09:08→20:27)
[2018-09-10] MEDS: METOPROLOL TARTRATE 25 MG TABLET PO SCH ×2 (09:09→20:28)
[2018-09-10] MEDS: FUROSEMIDE 20 MG TABLET PO SCH ×2 (09:09→20:28)
[2018-09-10] MEDS: LISINOPRIL 10 MG TABLET (PRINIVIL) PO SCH (09:10)
[2018-09-10] MEDS: HYDROcodone/ACETAMIN 10-325 MG TAB PO PRN (09:11)
[2018-09-10] MEDS: FLUTICASONE PROPIONATE 50 mCg/SPRAY 16 GM NS SCH ×2 (09:20→20:29)
--- NOTE | 2018-09-10 10:00 | NUR ---
rounds assisted at bedside and uses the commode. had a mod amount of bm. assisted with concepcion care and back to bed. call light withn reached.
[2018-09-10 10:47] VITALS: BP_SYST 128
[2018-09-10] MEDS: cefTRIAXone 1 GM IVPB PREMIX 50 ML IV SCH (12:53)
--- NOTE | 2018-09-10 14:00 | NUR ---
rounds seen by dr loredo and with order.
[2018-09-10 16:00] VITALS: BP_SYST 144
--- NOTE | 2018-09-10 16:00 | NUR ---
rounds patient family at bedside. no sob noted. call light within reached.
--- NOTE | 2018-09-10 19:00 | NUR ---
closing notes resting comfortably, no sob noted. bed to the lowest position. call light within reached.
--- NOTE | 2018-09-10 19:35 | NUR ---
ROUNDS PATIENT RESTING COMFORTABLY IN BED, VITALS STABLE, DENIES ANY PAIN AND DISCOMFORT AT THIS TIME. ASSESSMENT DONE AND DOCUMENTED. SEE FLOWSHEET. NEEDS ATTENDED TO. SAFETY AND FALL PRECAUTION MEASURES IN PLACED. BED IN LOW AND LOCKED POSITION. CALL LIGHT PLACED WITHIN REACH.
[2018-09-10 20:00] VITALS: BP_SYST 130
--- NOTE | 2018-09-10 21:13 | NUR ---
MEDICATION DUE MEDICATIONS GIVEN ORDERED, TOLERATED WELL. WILL CONTINUE TO MONITOR.
[2018-09-11 00:12] VITALS: BP_SYST 139
--- NOTE | 2018-09-11 00:14 | NUR ---
ROUNDS PATIENT ASLEEP, NO SOB NOR PAIN AND DISCOMFORT NOTED. WILL CONTINUE TO MONITOR.
--- NOTE | 2018-09-11 02:13 | NUR ---
ROUNDS PATIENT SLEEPING, RESPIRATIONS EVEN AND UNLABORED, WILL CONTINUE TO MONITOR.
[2018-09-11] MEDS: ALBUTEROL SULFATE 0.083% 2.5 MG/3 ML VIAL.NEB INH SCH ×5 (03:00→23:15)
[2018-09-11] MEDS: HYDROcodone/ACETAMIN 10-325 MG TAB PO PRN ×2 (03:43→13:46)
--- NOTE | 2018-09-11 04:12 | NUR ---
PATIENT RESTING: Patient resting quietly. No acute distress noted. Vital signs within normal range.
--- NOTE | 2018-09-11 06:14 | NUR ---
CLOSING NOTES PATIENT AWAKE, VITALS STABLE, NO PAIN AND DISCOMFORT AT THIS TIME. ALL NEEDS ATTENDED TO. SAFETY MEASURES MAINTAINED. CALL LIGHT PLACED WITHIN REACH.
[2018-09-11 08:00] VITALS: BP_SYST 140
--- NOTE | 2018-09-11 08:10 | NUR ---
INITIAL NOTE RECEIVED PATIENT FROM NIGHT RN. PATIENT IS RESTING COMFORTABLY IN BED. FALL PRECAUTIONS IN PLACE, SIDE RAILS UP, BED IN LOWEST POSITION, CALL LIGHT IN REACH, BED ALARM ON. PATIENT DOES NOT APPEAR TO BE IN ANY PAIN OR DISTRESS. PATIENT IS ON NASAL CANNULA 2 LITERS. PATIENT IS A&OX4. WILL CONTINUE TO MONITOR. Addendum: 09/11/18 at 1453 by Gretchen Liu RN ORDER FOR BILATERAL SCD'S IN PLACE, PT REFUSED TO HAVE BILATERAL SCD'S IN PLACE, EDUCATED PT ON IMPORTANCE OF USE TO PREVENT DVT, PT VERBALIZED UNDERSTANDING BUT CONTINUED TO REFUSE. IV CATHETER PATENT, NO SIGNS OF INFECTION OR INFILTRATION NOTED, SALINE LOCK.
[2018-09-11] MEDS: FUROSEMIDE 20 MG TABLET PO SCH ×2 (09:00→21:22)
--- NOTE | 2018-09-11 10:15 | NUR ---
ROUNDING NOTE HELPED PATIENT AMBULATE TO BEDSIDE COMMODE. PATIENT TOLERATED WELL. HELPED PATIENT BACK TO BED. FALL PRECAUTIONS IN PLACE. BED IN LOWEST POSITION, CALL LIGHT WITHIN REACH, BED ALARM ON. PATIENT RESTING COMFORTABLY. WILL CONTINUE TO MONITOR.
[2018-09-11] MEDS: PANTOPRAZOLE SODIUM 40 MG TAB PO SCH ×2 (10:18→21:22)
[2018-09-11] MEDS: METOPROLOL SUCCINATE 50 MG TAB.SR.24H (TOPROL XL) PO SCH (10:19)
[2018-09-11] MEDS: HYDROCHLOROTHIAZIDE 12.5 MG CAPSULE (HCTZ) PO SCH (10:20)
[2018-09-11] MEDS: FUROSEMIDE 40 MG TABLET PO SCH (10:21)
[2018-09-11] MEDS: cefTRIAXone 1 GM IVPB PREMIX 50 ML IV SCH (10:22)
[2018-09-11] MEDS: FLUTICASONE PROPIONATE 50 mCg/SPRAY 16 GM NS SCH ×2 (10:23→21:26)
[2018-09-11] MEDS: METOPROLOL TARTRATE 25 MG TABLET PO SCH ×2 (10:41→21:22)
[2018-09-11 11:29] VITALS: BP_SYST 146
--- NOTE | 2018-09-11 12:00 | NUR ---
ROUNDING NOTE PATIENT RESTING. PATIENT REPORTED PAIN 01/04. PAIN MEDICATION GIVEN. BLOOD PRESSURE REASSESSED, BLOOD PRESSURE MEDS GIVEN THAT WERE HELD FROM MORNING MEDS. BP WAS 145/64. WILL CONTINUE TO MONITOR. Addendum: 09/11/18 at 1510 by Tammy Tomlinson RN Patient reported pain 09/04.
[2018-09-11] MEDS: LISINOPRIL 10 MG TABLET (PRINIVIL) PO SCH (13:44)
[2018-09-11] MEDS: amLODIPine BESYLATE 10 MG TABLET PO SCH (13:45)
--- NOTE | 2018-09-11 14:00 | NUR ---
ROUNDING NOTE HELPED PATIENT AMBULATE TO THE RESTROOM. PATIENT TOLERATED WELL. HELPED PATIENT AMBULATE BACK TO BED. PATIENT RESTING COMFORTABLY IN BED. FALL PRECAUTIONS IN PLACE, SIDE RAILS UP, BED IN LOWEST POSITION, CALL LIGHT WITHIN REACH, BED ALARM ON. PATIENT DOES NOT APPEAR TO BE IN ANY DISTRESS OR DISCOMFORT. WILL CONTINUE TO MONITOR.
[2018-09-11 15:31] VITALS: BP_SYST 162
--- NOTE | 2018-09-11 16:00 | NUR ---
ROUNDING NOTE PATIENT IS RESTING COMFORTABLY IN BED. FALL PRECAUTIONS IN PLACE. BED ALARM ON, SIDE RAILS UP, BED IN LOWEST POSITION. PATIENT REPORTS PAIN IS NOW A 3/10 WHICH IS TOLERABLE FOR HER. PATIENT APPEARS TO BE IN NO DISTRESS OR DISCOMFORT. WILL CONTINUE TO MONITOR.
--- NOTE | 2018-09-11 16:16 | NUR ---
DC Planning: s/w CHELO Tovar at [facility], notified pt. needs snf placement for PT. DCP Irene faxed the referral package to fax # [phone]. La will call back tomorrow with the accepting location and ambulance set up. La aware of the requested snf location in [place] or [facility] per pt. request. -- CM to f/u in am.
--- NOTE | 2018-09-11 18:20 | NUR ---
CLOSING NOTE PATIENT IS RESTING COMFORTABLY IN BED. DOES NOT APPEAR TO BE IN ANY DISTRESS OR DISCOMFORT. PATIENT AWAITING PLACEMENT IN A [facility] FACILITY. FALL PRECAUTIONS IN PLACE, BED IN LOWEST POSITION, SIDE RAILS UP, CALL LIGHT WITHIN REACH, BED ALARM ON. WILL ENDORSE TO NEXT SHIFT.
[2018-09-11] MEDS: ENALAPRILAT DIHYDRATE 1.25 MG/ML VIAL IVP PRN (18:53)
--- NOTE | 2018-09-11 18:56 | NUR ---
BLOOD PRESSURE PATIENT'S BLOOD PRESSURE WAS 153/60, PULSE 85, ADMINISTERED PRN VASOTEC ORDERED, PT ASYMPTOMATIC, NO C/O HEADACHE OR DIZZINESS, WILL ENDORSE MONITORING TO INCOMING NURSE.
[2018-09-11 20:00] VITALS: BP_SYST 119
--- NOTE | 2018-09-11 20:00 | NUR ---
Opening notes Pt AAOx4, VSS, afebrile. No s/s distress noted. Pt just had a breathing txmt and denies any pain at this time. IV R. FA 20G saline lock, clear and patent. Call light/items within easy reach. Bed low, locked, side rails up. Will continue to monitor.
[2018-09-12 00:18] VITALS: BP_SYST 146
--- NOTE | 2018-09-12 00:20 | NUR ---
Rounds Pt asleep, respirations even and unlabored. Call light/items within reach. To monitor.
[2018-09-12] MEDS: ALBUTEROL SULFATE 0.083% 2.5 MG/3 ML VIAL.NEB INH SCH ×5 (03:11→19:42)
--- NOTE | 2018-09-12 05:25 | NUR ---
Rounds Pt asleep, easily arousable, no c/o SOB. IV saline lock R. FA clear and patent. Call light/items within easy reach. Bed low, locked, siderails elevated. Will continue to monitor
--- NOTE | 2018-09-12 06:15 | NUR ---
Closing notes Pt asleep, no s/s distress or sob noted. IV saline lock R. FA20G clear, patent. Call light/items within easy reach. Safety measures in place. To endorse to dayshift RN.
[2018-09-12 08:45] VITALS: BP_SYST 139
[2018-09-12] MEDS: HYDROcodone/ACETAMIN 10-325 MG TAB PO PRN ×2 (09:23→16:32)
[2018-09-12] MEDS: FUROSEMIDE 40 MG TABLET PO SCH (10:12)
[2018-09-12] MEDS: METOPROLOL SUCCINATE 50 MG TAB.SR.24H (TOPROL XL) PO SCH (10:14)
[2018-09-12] MEDS: FUROSEMIDE 20 MG TABLET PO SCH (10:15)
[2018-09-12] MEDS: PANTOPRAZOLE SODIUM 40 MG TAB PO SCH (10:16)
[2018-09-12] MEDS: METOPROLOL TARTRATE 25 MG TABLET PO SCH (10:16)
[2018-09-12] MEDS: LISINOPRIL 10 MG TABLET (PRINIVIL) PO SCH (10:20)
[2018-09-12] MEDS: FLUTICASONE PROPIONATE 50 mCg/SPRAY 16 GM NS SCH (10:56)
[2018-09-12] MEDS: HYDROCHLOROTHIAZIDE 12.5 MG CAPSULE (HCTZ) PO SCH (11:00)
--- NOTE | 2018-09-12 11:29 | NUR ---
Discharge Planning: DCP followed up with La at [facility] (f [phone] p [phone]) DCP left message inquiring if a SNF was accepting. Addendum: 09/12/18 at 1550 by Irene Curiel DP La at [facility] (f [phone] p [phone]), [facility] (f [phone]) RM 43A, [facility] ([phone]) 6:00pm P/U. Patient packet taken to nurse station.
[2018-09-12] MEDS: amLODIPine BESYLATE 10 MG TABLET PO SCH (11:30)
[2018-09-12] MEDS: cefTRIAXone 1 GM IVPB PREMIX 50 ML IV SCH (11:32)
--- NOTE | 2018-09-12 11:38 | NUR ---
Nutrition F/U RD reviewed pt's current EMR including diet Hx, physician notes, nursing notes, pertinent labs/meds/procedures, care trends and care activity. Current Diet Order: [facility] Cardiac Low CHOL Low Fat 2gm Na diet w/ Glucerna BID x 3 days Subjective information: Pt seen sitting up in bed, at time of visit earlier today. Pt reported of good appetite, denied any abd discomfort. Pt was provided w/ verbal nutrition education and reinforcement 09/12/18, as pt had nutrition related questions. RD answered all of pt's questions. BG lab value is WNL. Per EMR, PO intake 92% average of 6 meals x 2 days. Pt is receiving adequate nutrition w/ PO. May discontinue Glucerna. Current PO intake:92% average of 6 meals x 2 days ESTIMATED NUTRITIONAL REQUIREMENTS CALORIES/DAY: 8589-3745 kcal/day (25-30 kcal/kg Adj IBW for maintenance) PROTEIN/DAY: 78-85 gm/day (1.2-1.3 gm/kg Adj IBW for Renal Dz and Geriatric maintenance) FLUID/DAY: per MD (Renal Dz) D: Altered nutrition related labs r/t endocrine dysfunction AEB elevated BG lab values and Hx of DM. (*improving) I: Recommend: [facility] Card[facility]. Discontinue ONS Glucerna, as ONS is meeting adequate nutrition. M: Monitor appetite and PO intake w/ goal of pt meeting at least 75% of estimated needs, labs trending WNL, normal GI function, skin integrity/wt maintenance. E: RD to F/U within 3-5 days (moderate risk) KRISTOPHER OBREGON
[2018-09-12 11:40] VITALS: BP_SYST 147
--- NOTE | 2018-09-12 11:47 | NUR ---
Dietitian Recommendation 1. Recommend: [facility] Cardiac diet. 2. Discontinue ONS Glucerna, as ONS is meeting adequate nutrition. Addendum: 09/12/18 at [address] 2. Discontinue ONS Glucerna, at pt is meeting adequate nutrition.
--- NOTE | 2018-09-12 15:21 | NUR ---
At the beginning of the shift pt in bed,room air,awake,alert,calm,no c/o or discomfort noted,pt.told to call for assistance,call light in reach,will monitor.
[2018-09-12 15:54] VITALS: BP_SYST 117
[2018-09-12 16:56] VITALS: BP_SYST 117
--- NOTE | 2018-09-12 16:59 | NUR ---
Pt. will be discharge this evening to [facility], pt alert,aware of the transfer,no c/o,report given to Nurse Motley from the receiving facility.
--- NOTE | 2018-09-12 18:22 | NUR ---
[facility]w Rob. He said they are running late and they will be here in 45 minutes.
--- NOTE | 2018-09-12 19:31 | NUR ---
Pt.alert,calm,awaiting for the ambulance
--- NOTE | 2018-09-12 19:31 | NUR ---
Follow up call for [facility], s/w Damián, he said transport is [address] [facility].
[2018-09-12 20:23] VITALS: BP_SYST 153
--- NOTE | 2018-09-12 20:23 | NUR ---
[facility] Amb[facility] here to pick and shovel man pt. Pt AAOx3, VSS. All belongings with pt. Pt to go to [facility]. Christoph RN gave report to
== END 2018-09-12 20:30 | DRG 291 ==
LOC: SED 15:18 → STU 17:59 → SMU 09-09 11:12
PROVIDERS: ADMIT Internal Medicine; ATTEND Internal Medicine
DX: I13.0 Hypertensive heart and chronic kidney disease with heart failure and stage 1 through stage 4 chronic kidney disease, or unspecified chronic kidney disease (principal); N17.0 Acute kidney failure with tubular necrosis; I50.31 Acute diastolic (congestive) heart failure; L03.116 Cellulitis of left lower limb; L03.115 Cellulitis of right lower limb; E11.22 Type 2 diabetes mellitus with diabetic chronic kidney disease; N18.3 Chronic kidney disease, stage 3 (moderate); G47.33 Obstructive sleep apnea (adult) (pediatric); J40 Bronchitis, not specified as acute or chronic; I25.10 Atherosclerotic heart disease of native coronary artery without angina pectoris; I27.81 Cor pulmonale (chronic); M19.90 Unspecified osteoarthritis, unspecified site; G89.29 Other chronic pain; M54.9 Dorsalgia, unspecified; J44.9 Chronic obstructive pulmonary disease, unspecified; Z79.01 Long term (current) use of anticoagulants; Z87.891 Personal history of nicotine dependence; Z90.710 Acquired absence of both cervix and uterus; Z91.19 Patient's noncompliance with other medical treatment and regimen; Z79.899 Other long term (current) drug therapy; Z91.048 Other nonmedicinal substance allergy status; Z90.49 Acquired absence of other specified parts of digestive tract
CPT/HCPCS: 36415; 36600; 71045; 76641; 80053; 81000-TC; 82550-TC; 82803-TC; 83605; 83880; 84443-TC; 84484; 85025; 85610-TC; 85730-TC; 87040-TC; 87081; 93005; 93306; 93970; 94640; 94760; 96374; 97110-GP; 97116-GP; 97530-GP; 99285; G0378; J0456; J0696; J1940; J2405; J7050; J7613